=== PATIENT | female | born 1980 | race Caucasian/White ===

== ENCOUNTER 2017-01-28 05:58 | Observation (INO) | payer OTHER ==
--- NOTE | 2017-01-27 14:27 | PDGENHP ---
History and Physical History and Physical: Assessment and Plan: 1. Endometriosis Sparkle has bilateral endometriomas measuring approximately 5 cm. The ultrasound suggests an obliterated cul-de-sac with the rectum likely adherent to the posterior cervix and uterus. I also can feel nodularity along the uterosacral ligaments. Sparkle is extremely tired of the chronic pain and how it really interferes with her daily life including caring for her child and her relationship with her . Although they had planned on having two children she now is requesting as definitive a treatment as possible. As a result she will be scheduled for robotic excision of her endometriomas and all endometriosis including those on the rectum and all pelvic structures. Given her frozen pelvis, she likely has disease on her uterus and ovarian surfaces necessitating a hysterectomy with BSO. 2. Dyspareunia, female 3. Dysmenorrhea Subjective: Patient ID: Sparkle Quan is a 36 y.o. female who presents to [facility] for endometriosis. FROYLAN Villagran is a 36-year-old para one woman who presents to discuss endometriosis. She spontaneously conceived her daughter without difficulty and delivered her vaginally in 2012. When her menses returned she suffered debilitating pain. She also had severe dyspareunia. After one year she saw her WORLDWIDE CHIEF CREATIVE OFFICER who put her on a control pill in a continuous Fashion. Unfortunately she continue to suffer from daily pelvic pain as well as the dyspareunia. She then saw a new OB/ AMMONIA OPERATOR who ordered a pelvic ultrasound which showed bilateral endometriomas. The physician recommended a hysterectomy as treatment. Her cycles are regular every month. She will bleed a total of 6 days. The first 2 days are heavier. She feels pain on the daily basis. The pain significantly worsens during her menses. She also has bloating and nerve type pain radiating down both thighs as well as the low back. She only has one good week per month. She has terrible deep dyspareunia. She has slight dyschezia during her menses. She occasionally has bladder spasm type pain when urinating during her menses. She has no blood in her stool. She lives in [place]. 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 PastMedicalHistory Past Medical History: Diagnosis Date Endometriosis PastSurgicalHistory Past Surgical History: Procedure Laterality Date THYROIDECTOMY, PARTIAL 04/2015 CURRENT MEDICATIONS: No current outpatient prescriptions on file. No current facility-administered medications for this visit. ALLERGIES: Review of patient's allergies indicates no known allergies. I have reviewed, verified and agree with the past medical, surgical, , family, social and ROS history as documented by the RN today. Review of Systems Objective: Vital Signs: Visit Vitals BP 106/70 Pulse 90 Temp 36.8 C (98.3 F) (Tympanic) Ht 1.664 m (5' 5.5") Wt 66.5 kg (146 lb 9.6 oz) LMP 12/29/2016 (Exact Date) SpO2 99% BMI 24.02 kg/m2 Physical Exam Gen: This is an alert, well developed woman in no distress. Neuro: She moves all extremities. Psych: She is appropriate, oriented, with normal affect. Neck: No thyroid enlargement, adenopathy, or tenderness. Lungs: Clear to ascultation, no wheezes or rales. Heart: Regular rate and rhythm without obvious murmurs. Abdomen: Soft, non-tender, without guarding, rebound, or masses. Extremities: No edema or cyanosis. Pelvic: Normal external genitalia. Non-gaping introitus, vagina without discharge, adequately estrogenized, no significant prolapse. Cervix without lesions or discharge. Uterus normal sized, immobile, tender posteriorly. Adnexa tender with fullness. Both uterosacral ligaments are tender. She appears to have approximately 8 mm nodule on the left uterosacral ligament and a smaller approximately 3 mm on the right. The posterior cul-de-sac it is exquisitely tender. DATA: Pelvic ultrasound Findings: The uterus is anterior and measures 7.7 x 4.3 x 5.5 cm. The endometrium measures 12 mm. There is a suggestion of adenomyosis in the posterior myometrium. The right ovary contains a cystic structure with a groundglass appearance measuring 4.3 x 3.6 x 3.1 cm. The left adnexa also contains a cystic structure with a groundglass appearance measuring 4.8 x 4.8 x 4.2 cm. The cervix appears to be adherent to the rectum. The ovaries have minimal mobility. Impression: Bilateral ovarian cysts likely representing endometriomas. 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 Probable adenomyosis. TIME/COMMUNICATION: I personally spent a total of 60 minutes. Of that 40 minutes was counseling/ coordination of patient's care. See my note above for details. Joaquin Bradley MD Board Certified Female Pelvic Medicine and Reconstructive Surgery Director of Minimally Invasive Gynecologic Surgery, [facility] Minimally Invasive Gynecologic Surgery Designee
[2017-01-28] MEDS ORDERED: ACETAMINOPHEN 500 MG TAB PO ONE (06:36)
[2017-01-28] MEDS ORDERED: ceFAZolin 2 GM/DEXTROSE 100 ML IV ONE (06:36)
[2017-01-28] MEDS ORDERED: PHENAZOPYRIDINE HCL 100 MG TAB PO ONE (06:36)
[2017-01-28] MEDS ORDERED: GABAPENTIN 400 MG CAP PO ONE (06:36)
[2017-01-28] MEDS ORDERED: LR 1,000 ML IV ONE (06:37)
[2017-01-28] MEDS ORDERED: PHENAZOPYRIDINE HCL 200 MG TAB PO ONE (06:45)
[2017-01-28] MEDS ORDERED: MIDAZOLAM 2 MG/2 ML VIAL IVP ONE (06:55)
--- NOTE | 2017-01-28 06:58 | PDANEPAE ---
ANE History of Present Illness 36 year old female presents for robotic assisted endometrioma resection w/ possible hysterectomy. Patient with Chronic pelvic pain, dyspareunia & dysmenorrhea. ANE Past Medical History - Cardiovascular History Hx Hypertension: No Hx Arrhythmias: No Hx Chest Pain: No Hx Coronary Artery / Peripheral Vascular Disease: No Hx CHF / Valvular Disease: No Hx Palpitations: No - Pulmonary History Hx COPD: No Hx Asthma/Reactive Airway Disease: No Hx Recent Upper Respiratory Infection: No Hx Oxygen in Use at Home: No Hx Sleep Apnea: No Sleep Apnea Screening Result - Last Documented: Negative - Neurologic History Hx Cerebrovascular Accident: No Hx Seizures: No Hx Dementia: No - Endocrine History Hx Diabetes: No Hypothyroid: No Hyperthyroid: No Obesity: no Endocrine History Comment: Partial thryoidectomy for benign thyroid nodule. - Renal History Hx Renal Disorders: No - Liver History Hx Hepatic Disorders: No - Neurological & Psychiatric Hx Hx Neurological and Psychiatric Disorders: No - Cancer History Hx Cancer: No - Congenital Disorder History Hx Congenital Disorders: No - GI History Hx Gastrointestinal Disorders: No - Other Health History Other Health History: none - Chronic Pain History Chronic Pain: Yes (pelvic pain radiates through back) - Surgical History Prior Surgeries: partial thyroidectomy apr 2016 ANE Review of Systems Review of systems is: negative Review of Systems: - Exercise capacity Exercise capacity: >=4 METS METS (RN): 5 METS ANE Patient History - Allergies Allergies/Adverse Reactions: No Known Allergies Allergy (Verified 01/15/17 15:29) - Home Medications Home medications: home medication list seen and reviewed Home Medications: Ascorbic Acid [Vitamin C] 1,000 mg PO DAILY 01/14/17 [Last Taken Unknown] Cetirizine [ZyrTEC 10 mg (*)] 10 mg PO DAILY PRN 01/14/17 [Last Taken Unknown] Herbals/Supplements -Info Only 1 ea PO DAILY 01/14/17 [Last Taken Unknown] Vitamin A 25,000 unit PO SUWE 01/14/17 [Last Taken Unknown] Vitamin E Acetate [VITAMIN E] 400 unit PO DAILY 01/14/17 [Last Taken Unknown] traMADol [Ultram 50 mg (*)] 50 mg PO DAILY PRN 01/14/17 [Last Taken Unknown] - NPO status NPO Status: no food or drink >8 hours - Anes Hx Anes Hx: no prior problems - Smoking Hx Smoking Status: Never smoked Marijuana use: No - Alcohol Use Alcohol Use: Rarely - Family Anes Hx Family Anes Hx: neg - N/A Family Hx Anesthesia Complications: none ANE Labs/Vital Signs - Vital Signs Vital Signs: reviewed preoperatively; see RN documention for details Height: 167.64 cm Weight: 67.132 kg ANE Physical Exam - Airway Neck exam: FROM Mallampati Score: Class 2 Mouth exam: normal dental/mouth exam - Pulmonary Pulmonary: no respiratory distress - Cardiovascular Cardiovascular: regular rate and rhythym - ASA Status ASA Status: II ANE Anesthesia Plan Anesthesia Plan: general endotracheal anesthesia Total IV Anesthesia: No
[2017-01-28] MEDS ORDERED: SCOPOLAMINE HYDROBROMIDE 1 MG/3 DAYS PATCH TD SCH (07:00)
[2017-01-28] MEDS ORDERED: ROCURONIUM 50 MG/5 ML VIAL ONE ×3 (07:04→09:20)
[2017-01-28] MEDS ORDERED: LIDOCAINE 2% 5 ML SDV ONE (07:04)
[2017-01-28] MEDS ORDERED: PROPOFOL 200 MG/20 ML VIAL ONE ×2 (07:04→08:07)
[2017-01-28] MEDS ORDERED: fentaNYL 100 MCG/2 ML INJ ONE ×3 (07:04→11:35)
[2017-01-28] MEDS ORDERED: DEXAMETHASONE 4 MG/ML VIAL ONE (07:19)
[2017-01-28] MEDS ORDERED: ONDANSETRON 4 MG/2 ML VIAL ONE ×2 (07:19→11:35)
[2017-01-28] MEDS ORDERED: BUPIVACAINE 0.5% 30 ML SDV ONE (07:21)
--- NOTE | 2017-01-28 07:31 | PDHPUP ---
History & Physical Update H&P update statement: This history and physical update is based on an assessment of the patient which was completed after admission or registration (within 24 hours), but prior to the surgery/procedure. H&P update: H&P reviewed & patient examined, no change in patient's condition since H&P completed
[2017-01-28] MEDS ORDERED: LIDOCAINE 2% JELLY 5 ML TUBE ONE (07:32)
--- NOTE | 2017-01-28 07:32 | POSTOPPROG ---
Post Op Note Date of Operation: 01/28/17 Surgeon: Joaquin Bradley [employer] Equipment Operator: Magda Le Anesthesiologist: Raiza Anesthesia: GET(General Endotracheal) Pre-op Diagnosis: Endometriosis, pelvic pain Post-op Diagnosis: Same Procedure: Robotic hyst, BSO, Excision of endo, bilat ureterolysis/stents, appy Findings: Both ureters function at end of case, no bladder leak Inf/Abcess present in the surg proc area at time of surgery?: No EBL: Minimal Complications: None Specimen(s): Uterus, bilat tubes and ovaries, peritoneum with endo Rectal nodule Bladder nodule
[2017-01-28] MEDS ORDERED: PHENYLEPHRINE HCL 100 MCG/ML SYR ONE ×2 (07:52→09:29)
[2017-01-28] MEDS ORDERED: MEPERIDINE 25 MG/ML SYR IVP PRN (08:23)
[2017-01-28] MEDS ORDERED: OXYCODONE/APAP 5/325 TAB PO PRN (08:23)
[2017-01-28] MEDS ORDERED: NALOXONE HCL 0.4 MG/ML INJ IVP PRN (08:23)
[2017-01-28] MEDS ORDERED: fentaNYL 100 MCG/2 ML INJ IVP PRN (08:23)
[2017-01-28] MEDS ORDERED: ONDANSETRON 4 MG/2 ML VIAL IVP PRN ×2 (08:23→11:23)
[2017-01-28] MEDS ORDERED: LR 500 ML IV PRN (08:23)
--- NOTE | 2017-01-28 09:03 | GOP ---
[f rep st] OPERATIVE REPORT DATE OF OPERATION: 01/28/2017 SURGEON: Joelle Dyer MD AGED OR DISABLED CARER: Joaquin Bradley MD. ANESTHESIA: General. ANESTHESIOLOGIST: Tacho Del Castillo MD. PREOPERATIVE DIAGNOSIS: Endometriosis. POSTOPERATIVE DIAGNOSIS: Endometriosis. PROCEDURE PERFORMED: Laparoscopic appendectomy. FINDINGS: Endometriosis on the appendix, slightly inflamed. SPECIMENS: Appendix. ESTIMATED BLOOD LOSS: 1 cc. INDICATIONS: The patient is a 36-year-old woman who is undergoing a robotic surgery for endometriosi s, when it was noted that her appendix was enlarged. I was called into the operating room for an int raoperative consult. DESCRIPTION OF PROCEDURE: The patient was already in the operating room, intubated in general anesth esia with all of the robotic trocars in place. I dissected the mesoappendix with the PK. I then lisa t to the bedside and transected the base with an Endo-DEBORAH 45 white load. Hemostasis was achieved at the staple line. The appendix was removed via the upsized trocar. Dr. Bradley was then able to quirino nue with his portion of the operation. /[id number]/MODL
[2017-01-28] MEDS ORDERED: IOPAMIDOL (ISOVUE-M 300) 15 ML VIAL ONE (10:16)
[2017-01-28] MEDS ORDERED: SUGAMMADEX SODIUM 200 MG/2 ML VIAL IVP ONE ×2 (10:50)
[2017-01-28] MEDS ORDERED: ONDANSETRON DISINTEGRATING 4 MG TAB PO PRN (11:23)
--- NOTE | 2017-01-28 11:24 | GOP ---
[f rep st] OPERATIVE REPORT DATE OF OPERATION: 01/28/2017 SURGEON: Tyron Brock MD PREOPERATIVE DIAGNOSIS: POSTOPERATIVE DIAGNOSIS: PROCEDURE PERFORMED: FINDINGS: INDICATIONS: Intraoperatively, I have been asked to assess the present condition of the cystotomy af ter hysterectomy for severe endometriosis. DESCRIPTION OF PROCEDURE: The patient is in the robotic position with the robot docked. Could quite easily see the defect in her bladder and could see each the right and left ureteral orifices. I shira cted at that point to pass ureteral stents. The way that was done was went transurethrally with a Po BasharJobsack catheter. That was able to be threaded up into each ureter and passed a 0.032 guidewire until there was some resistance. Actually measured the distance to approximately 30 cm on the Pollack cath eter. At that point, 4.7 multilink stents were passed and they had normal position, curled in the bl adder quite well, and appeared to have normal efflux out each ureter. At the present time, Dr. Lobo hsu will complete the surgical procedure robotically. Would recommend probably to continue her ureteral stents, leave those in for approximately a month an d then pull them. Would be happy to have followup and assessment of this patient as desired or if de sired. /[id number]/MODL
[2017-01-28] MEDS ORDERED: PROMETHAZINE HCL 25 MG/ML INJ IVP PRN (11:26)
[2017-01-28] MEDS ORDERED: DIAZEPAM 10 MG/2 ML SYR IVP PRN (11:26)
[2017-01-28] MEDS ORDERED: LR 1,000 ML IV SCH (11:30)
[2017-01-28] MEDS ORDERED: HYDROmorphONE/DILAUDID 1 MG/ML INJ ONE ×2 (11:41→12:07)
[2017-01-28] MEDS: HYDROmorphONE/DILAUDID 1 MG/ML INJ IVP PRN ×9 (11:48→23:59)
[2017-01-28] MEDS: ceFAZolin 2 GM/DEXTROSE 100 ML IV SCH (14:14)
[2017-01-28] MEDS: HYDROCODONE/APAP 5/325 TAB PO PRN ×3 (14:19→23:33)
[2017-01-28] MEDS: PHENAZOPYRIDINE HCL 200 MG TAB PO SCH (15:28)
[2017-01-28] MEDS: OPIUM/BELLADONNA ALKALO SUPP PR PRN ×2 (15:40→21:34)
[2017-01-28] MEDS: KETOROLAC 30 MG/1 ML SDV IVP SCH ×2 (17:09→23:33)
--- NOTE | 2017-01-28 17:55 | POSTANESTH ---
Post Anesthetic Evaluation Cardiovascular Status: Normal, Stable, Similar to Pre-Op Cond Respiratory Status: Normal, Stable, Similar to Pre-op Cond. Level of Consciousness/Mental Status: Can Participate in Eval, Mildly Sleepy, Arousable Pain Control: Adequate, Prn Tx Ordered Nausea/Vomiting Control: Adequate, Prn Tx Ordered Complications Possibly Related to Anesthesia: None Noted
[2017-01-28] MEDS: SIMETHICONE 80 MG TAB CHEW PO SCH (19:07)
[2017-01-28] MEDS: DOCUSATE SODIUM 100 MG CAP PO SCH (21:34)
[2017-01-28] MEDS ORDERED: ceFAZolin 2 GM in D5W 100 ML IV SCH (22:00)
[2017-01-29] MEDS: OXYCODONE/APAP 5/325 TAB PO PRN ×3 (03:48→09:23)
[2017-01-29] MEDS: OPIUM/BELLADONNA ALKALO SUPP PR PRN ×3 (03:53→17:03)
--- NOTE | 2017-01-29 03:59 | GOP ---
[f rep st] OPERATIVE REPORT DATE OF OPERATION: 01/28/2017 SURGEON: Joaquin Bradley MD SVP CHIEF MARKETING OFFICER: Magda Le, certified surgical 1st assist. ANESTHESIA: General. PREOPERATIVE DIAGNOSIS: 1. Dysmenorrhea. 2. Dyspareunia. 3. Dyschezia. 4. Uterine prolapse. 5. Bilateral endometriomas. POSTOPERATIVE DIAGNOSIS: 1. Dysmenorrhea. 2. Dyspareunia. 3. Dyschezia. 4. Uterine prolapse. 5. Bilateral endometriomas. PROCEDURE PERFORMED: 1. Robotic-assisted total laparoscopic hysterectomy, bilateral salpingo-oophorectomy. 2. Robotic excision of extensive endometriosis. 3. Bilateral ureterolysis. 4. Excision of rectal nodule. 5. Excision of bladder nodule. 6. Bilateral uterosacral ligament colpopexies. 7. Excision of diaphragmatic lesions. 8. Appendectomy by Dr. Joelle Dyer. 9. Cystoscopy with bilateral ureteral stent placements by Dr. Tyron Brock. FINDINGS: The patient had extensive endometriosis with a frozen pelvis and bilateral endometriomas. The rectum was densely adherent to the posterior cervix and proximal vagina with a nodule of endomet riosis. She had a lesion of endometriosis between the bladder and anterior vagina. This required a full-thickness cystotomy to remove the bladder lesion. Given the somewhat close proximity to the ure ters, Dr. Tyron Brock of Urology was consulted intraoperatively to place bilateral ureteral stents to prevent any kinking of the ureteral orifices during the cystotomy repair. The patient had endometri osis on her appendix. As a result, Dr. Joelle Dyer of General Surgery was consulted intraoperatively for an appendectomy. SPECIMENS: 1. Uterus, bilateral tubes and ovaries. 2. Rectal nodule. 3. Bladder nodule. 1. Appendix. 4. ESTIMATED BLOOD LOSS: 25 mL. DESCRIPTION OF PROCEDURE: The patient was taken to the operating room. She was identified. General anesthesia was administered and found to be adequate. She was placed in the lithotomy position and prepared and draped in normal sterile fashion. A VCare uterine manipulator was placed into the endom etrial cavity and sutured to the cervix. A Leon catheter was then placed. I had performed a pelvic exam as well as a rectal exam after anesthesia was administered. She had multiple, small, pellet-li ke, pieces of stool in the rectum which were removed digitally. I was unable to palpate any full-thi ckness rectal lesion. A 1 cm, infraumbilical incision was made with a scalpel. The Veress needle with the CO2 gas flowing was advanced into the peritoneal cavity. The abdomen was then insufflated with carbon dioxide gas. The 12 mm trocar followed by the laparoscope were then inserted. The upper abdomen showed several sm all lesions of endometriosis on the right hemidiaphragm. Two lateral ports were placed on the right and 1 on the left under direct visualization. Several of the diaphragmatic lesions were excised with the laparoscopic scissors. These extended approximately 50% into the diaphragmatic muscle. The [facility] lesions were fulgurated. She was then placed in Trendelenburg position and the da Anay robot doc ked on the left side. The instruments were then brought into the abdominal cavity under direct visua lization. The pelvis was examined. She was noted to have lesions on her appendix. As a result, I f tyler up the appendix and cecum which were adherent to the right pelvic brim. The appendiceal vessels were then skeletonized while awaiting Dr. Dyer's arrival. She then performed an appendectomy. Ple ase see a copy of her operative note. The left round ligament was divided. The anterior leaf of the broad ligament was then incised to the bifurcation of the left common iliac vessels. The ureter was gently dissected free near the pelvic brim. A window was created in the posterior leaf of the broad ligament to skeletonize the infundibul opelvic vessels. They were then cauterized and transected. The left ureter was densely adherent to the left adnexa and endometrioma. As a result, a ureterolysis was required from the pelvic brim all the way down to the bladder. Once this was accomplished, the left adnexa was freed from the pelvic s idewall. It was then from the uterus to aid in visualization. The anterior leaf of the br oad ligament was then incised over the left uterine vessels and across the cervix. The left uterine artery was ligated just lateral to the ureter. The bladder was gently dissected off the cervix and u pper vagina. There was a nodule of endometriosis near the uterine artery which extended to the vagin a and bladder. This lesion was completely excised. To excise it required an intentional cystotomy. The Leon catheter tubing was clamped to prevent pneumoperitoneum from rupturing the Leon catheter bag. A similar procedure was performed on the patient's right side. Again, a right ureterolysis was requi red from the pelvic brim all the way down to the bladder. The right adnexa was freed from the pelvic sidewall and again from the uterus. Attention was then turned to the rectum. The pararectal spaces were developed and carried distally b eyond where the nodule was. I then was able to identify the entire boundaries of the rectal nodule. It was off the cervix. A circumferential colpotomy incision was then made with the hot sh ears, and the specimens were removed through the vagina. The rectal nodule was then excised off the rectum. This extended approximately 30% to 50% into the muscularis portion. Prior to closing the cystotomy, Dr. Tyron Brock of Urology was consulted intraoperatively to place bi lateral ureteral stents, so that I could close the cystotomy without risk of kinking the ureters. Th e bladder was then closed in 2 layers with 3-0 Vicryl. It was backfilled with sterile saline and it was intact without any leakage. Bilateral uterosacral ligament colpopexies were then performed by attaching the lateral aspects of th e vaginal cuff to the ipsilateral uterosacral ligaments near their insertions into the coccygeal-sacr ospinous ligament complexes. The pelvis was then copiously irrigated with sterile saline and hemosta sis was present. The remaining endometriosis was excised. The robot was then undocked. The fascia was closed with 0 Vicryl, skin with 4-0 Monocryl and surgical adhesive. Anesthesia was reversed and the patient was taken to PACU awake, in stable condition. COMPLICATIONS: None. DISPOSITION: Patient stable to PACU. /[id number]/MODL
[2017-01-29] MEDS: KETOROLAC 30 MG/1 ML SDV IVP SCH ×5 (05:13→23:22)
[2017-01-29 06:32] LABS: % IMMATURE GRANULYOCYTES 0.4 % (0.0-1.1); ABSOLUTE IMMATURE GRANULOCYTES 0.03 10^3/uL (0.00-0.10); ADD DIFF? NO; ADD MORPH? NO; ADD SCAN? NO; ATYPICAL LYMPHOCYTE FLAG 10 (0-99); FRAGMENT RBC FLAG 0 (0-99); HEMATOCRIT 28.2 % (38.0-47.0); HEMOGLOBIN 9.8 g/dL (12.6-16.3); LEFT SHIFT FLG 0 (0-99); LIPEMIA HEMOLYSIS FLAG 90 (0-99); MEAN CELL HEMOGLOBIN 32.8 pg (27.9-34.1); MEAN CELL HEMOGLOBIN CONCENTR. 34.8 g/dL (32.4-36.7); MEAN CELL VOLUME 94.3 fL (81.5-99.8); MEAN PLATELET VOLUME 11.6 fL (8.7-11.7); PLATELET CLUMPS FLAG 20 (0-99); PLATELET COUNT 157 10^3/uL (150-400); RED BLOOD CELL COUNT 2.99 10^6/uL (4.18-5.33); RED CELL DISTRIBUTION WIDTH 12.6 % (11.5-15.2)
[2017-01-29] MEDS: PHENAZOPYRIDINE HCL 200 MG TAB PO SCH ×4 (08:41→20:31)
[2017-01-29] MEDS: DOCUSATE SODIUM 100 MG CAP PO SCH ×2 (08:41→19:36)
[2017-01-29] MEDS: SIMETHICONE 80 MG TAB CHEW PO SCH ×6 (08:42→23:39)
[2017-01-29] MEDS: HYDROmorphONE/DILAUDID 2 MG TAB PO PRN ×3 (11:25→19:37)
[2017-01-29] MEDS: NORETHINDRONE ACET 5 MG TAB PO SCH (13:53)
[2017-01-29] MEDS: ESTRADIOL 1 MG TAB PO SCH (13:54)
[2017-01-29] MEDS: ceFAZolin 2 GM/DEXTROSE 100 ML IV SCH (19:26)
[2017-01-30] MEDS: HYDROmorphONE/DILAUDID 1 MG/ML INJ IVP PRN (04:17)
[2017-01-30] MEDS: SIMETHICONE 80 MG TAB CHEW PO SCH ×4 (04:39→16:08)
[2017-01-30] MEDS: OXYCODONE/APAP 5/325 TAB PO PRN ×3 (04:39→19:30)
[2017-01-30] MEDS: KETOROLAC 30 MG/1 ML SDV IVP SCH ×2 (06:30→13:16)
[2017-01-30] MEDS: OPIUM/BELLADONNA ALKALO SUPP PR PRN ×2 (06:31→19:32)
[2017-01-30] MEDS: DOCUSATE SODIUM 100 MG CAP PO SCH (08:57)
[2017-01-30] MEDS: PHENAZOPYRIDINE HCL 200 MG TAB PO SCH ×2 (09:06→13:36)
[2017-01-30] MEDS: ESTRADIOL 1 MG TAB PO SCH (09:07)
[2017-01-30] MEDS: NORETHINDRONE ACET 5 MG TAB PO SCH (09:08)
[2017-01-30] MEDS ORDERED: ZOLPIDEM TARTRATE 5 MG TAB PO PRN (11:11)
[2017-01-30] MEDS ORDERED: NITROFURANTOIN MACROBID 100 MG CAP PO SCH (11:15)
--- NOTE | 2017-01-30 11:23 | SOAPPROG ---
SOAP Progress Note Assessment/Plan: Assessment: Doing better, pain better controlled. Plan: 01/30/17 11:20 Try to switch to only oral meds. If able to manage this will consider discharge home. F/U with me next week. Leon about 10 days. Stents 2-4 weeks. Subjective: Doing better. Pain better controlled today. Able to sleep with phenergan. Ambulate some in room. Some UTI symptoms. Objective: Vital Signs Temp Pulse Resp BP Pulse Ox 37.0 C 87 16 97/65 L 94 01/30/17 04:54 01/30/17 04:54 01/30/17 04:54 01/30/17 04:54 01/30/17 04:54 Laboratory Results 01/29/17 06:00 01/29/17 01/30/17 01/31/17 05:59 05:59 05:59 Intake Total 1800 1350 Output Total 2300 3250 Balance -500 -1900 - Pending Discharge Pending Discharge Within 24 Hours: Yes Pending Discharge Date: 01/31/17 Pending Discharge Time: 11:00 Physical Exam - Physical Exam General Appearance: WD/WN, alert, no apparent distress Respiratory: lungs clear Cardiac/Chest: regular rate, rhythm Abdomen: normal bowel sounds, soft (Incisions clean, dry, and intact. Urine clear in tubing.) ICD10 Worksheet Patient Problems: Problems Problem Status Onset Dysmenorrhea Acute Endometriosis determined by laparoscopy Acute
[2017-01-30] MEDS ORDERED: IBUPROFEN 800 MG TAB PO SCH (12:00)
[2017-01-30] MEDS: HYDROCODONE/APAP 5/325 TAB PO PRN (12:33)
[2017-01-30 14:34] VITALS: O2SAT 92
[2017-01-30] MEDS: HYDROmorphONE/DILAUDID 2 MG TAB PO PRN (16:08)
[2017-01-30 16:15] VITALS: BP 96/62; PULSE 79; RESP 18; TEMP 98.8
[2017-01-31] MEDS ORDERED: PATCH REMOVAL 1 EA PATCH TD SCH (06:55)
== END 2017-01-30 20:15 | disposition home or self-care (01) ==
LOC: F3E 05:58 → FOB 12:47
PROVIDERS: ADMIT Obstetrics & Gynecology; ATTEND Obstetrics & Gynecology
PROC: 8E0W4CZ Robotic Assisted Procedure of Trunk Region, Percutaneous Endoscopic Approach (ICD-10-PCS; principal; 2017-01-28 07:15)
PROC: 0UTC4ZZ Resection of Cervix, Percutaneous Endoscopic Approach (ICD-10-PCS; principal; 2017-01-28 07:15)
PROC: 0DBP4ZZ Excision of Rectum, Percutaneous Endoscopic Approach (ICD-10-PCS; principal; 2017-01-28 07:15)
PROC: 0UT24ZZ Resection of Bilateral Ovaries, Percutaneous Endoscopic Approach (ICD-10-PCS; principal; 2017-01-28 07:15)
PROC: 0USG4ZZ Reposition Vagina, Percutaneous Endoscopic Approach (ICD-10-PCS; principal; 2017-01-28 07:15)
PROC: 0TBB4ZZ Excision of Bladder, Percutaneous Endoscopic Approach (ICD-10-PCS; principal; 2017-01-28 07:15)
PROC: 0TN74ZZ Release Left Ureter, Percutaneous Endoscopic Approach (ICD-10-PCS; principal; 2017-01-28 07:15)
PROC: 0BBT4ZZ Excision of Diaphragm, Percutaneous Endoscopic Approach (ICD-10-PCS; principal; 2017-01-28 07:15)
PROC: 0UBG4ZZ Excision of Vagina, Percutaneous Endoscopic Approach (ICD-10-PCS; principal; 2017-01-28 07:15)
PROC: 0TN64ZZ Release Right Ureter, Percutaneous Endoscopic Approach (ICD-10-PCS; principal; 2017-01-28 07:15)
PROC: 0UT94ZZ Resection of Uterus, Percutaneous Endoscopic Approach (ICD-10-PCS; principal; 2017-01-28 07:15)
PROC: 0DTJ4ZZ Resection of Appendix, Percutaneous Endoscopic Approach (ICD-10-PCS; principal; 2017-01-28 07:15)
PROC: 0UT74ZZ Resection of Bilateral Fallopian Tubes, Percutaneous Endoscopic Approach (ICD-10-PCS; principal; 2017-01-28 07:15)
PROC: 0T788DZ Dilation of Bilateral Ureters with Intraluminal Device, Via Natural or Artificial Opening Endoscopic (ICD-10-PCS; principal; 2017-01-28 07:15)
DX: N80.3 Endometriosis of pelvic peritoneum (principal); N80.8 Other endometriosis; N80.5 Endometriosis of intestine; N80.4 Endometriosis of rectovaginal septum and vagina; N80.1 Endometriosis of ovary; N94.10 Unspecified dyspareunia; K59.00 Constipation, unspecified; N81.4 Uterovaginal prolapse, unspecified
CPT/HCPCS: 44970; 45499; 49329; 51999; 52332; 57425; 58571; 58662; C1758; C1769; G0378; S2900; C2625; J0690; J1100; J1170; J1885; J2250; J2370; J2405; J2550; J2704; J3010; Q9967